=== PATIENT | female | born 2000 ===

== ENCOUNTER 2023-01-21 08:34 | Day surgery (SDC) | payer BC ==
[~2023-01-21 08:34] MED LIST: Cosyntropin 250 MCG VIAL SLOW IVP SCH
[2023-01-21] MEDS ORDERED: Sodium Chloride 0.9% (PF) 10 ML VIAL FS SCH (09:00)
[2023-01-21 09:36] VITALS: BP 101/62; TEMP 98.3
== END 2023-01-21 11:18 | disposition home or self-care (01) ==
LOC: ONC/OP 08:34
PROVIDERS: ATTEND Internal Medicine Rheumatology
DX: E27.40 Unspecified adrenocortical insufficiency (principal); R53.82 Chronic fatigue, unspecified
CPT/HCPCS: 36415; 80400; 82024; 96374; J0834